=== PATIENT | male | born 1975 | race Two or more races ===

== ENCOUNTER 2022-08-08 16:31 | Emergency (ER) | payer OTHER ==
[~2022-08-08] VITALS: Ht 175.3 cm; Wt 91.2 kg
--- NOTE | 2022-08-08 16:55 | NUR ---
C/O RIGHT FOOT PAIN 5/10 "TOOL BOX DROP ON IT" 1 HOUR AGO. BRUISING NOTED ON AFFECTED AREA. AAOX4. VSS. AWAITING MD ORDERS.
--- NOTE | 2022-08-08 18:33 | NUR ---
Patient discharged to home in stable condition. Written and verbal after care instructions given. Patient verbalizes understanding of instruction.
[2022-08-08 18:38] VITALS: BP 122/89
== END 2022-08-08 18:38 | disposition home or self-care (01) ==
LOC: ER 16:33
DX: S90.31XA Contusion of right foot, initial encounter (principal); W04.XXXA Fall while being carried or supported by other persons, initial encounter; Y93.89 Activity, other specified; Y92.89 Other specified places as the place of occurrence of the external cause; Y99.8 Other external cause status
CPT/HCPCS: 73630-TC